=== PATIENT | female | born 1970 | race Hispanic/Latino ===

== ENCOUNTER 2024-03-30 17:24 | Emergency (ER) | payer SELFPAY ==
[~2024-03-30] VITALS: Ht 157.5 cm; Wt 77.1 kg
[2024-03-30] MEDS: ONDANSETRON HCL 4 MG ORAL DISINTEGRATING TAB PO ONE (18:32)
[2024-03-30] MEDS: HYDROCODONE/APAP 10MG-325MG TAB PO ONE (18:32)
[2024-03-30 18:56] VITALS: PULSE 57; RESP 17; TEMP 98.4
[2024-03-30] MEDS ORDERED: TETANUS/DIPHTHERIA TOX ADULT 0.5 ML SYR ONE (19:02)
[2024-03-30] MEDS ORDERED: LIDOCAINE 1% W/EPINEPHRINE 20 ML VIAL ONE (19:02)
[2024-03-30] MEDS: TETANUS/DIPHTHERIA TOX ADULT 0.5 ML SYR IM ONE (19:09)
[2024-03-30] MEDS: HYDROCHLOROTHIAZIDE 25 MG TAB PO ONE (19:11)
[2024-03-30] MEDS: LIDOCAINE 1% W/EPINEPHRINE 20 ML VIAL INJ ONE (19:40)
[2024-03-30] MEDS ORDERED: CEPHALEXIN500 MG PO (19:44)
[2024-03-30] MEDS ORDERED: HYDROCHLOROTHIA25 MG PO (19:44)
[2024-03-30] MEDS: BACITRACIN ZINC 0.9GM TP ONE (19:45)
[2024-03-30 19:55] VITALS: BP 178/83; PULSE 60; RESP 17; TEMP 98.2; O2SAT 100
== END 2024-03-30 19:56 | disposition home or self-care (01) ==
LOC: ER 17:49
DX: S81.011A Laceration without foreign body, right knee, initial encounter (principal); W01.198A Fall on same level from slipping, tripping and stumbling with subsequent striking against other object, initial encounter; Y93.01 Activity, walking, marching and hiking; Y92.89 Other specified places as the place of occurrence of the external cause; I10 Essential (primary) hypertension; E03.9 Hypothyroidism, unspecified; D64.9 Anemia, unspecified
CPT/HCPCS: 73562; 73590; 90471; 90714; 99283; Q0162